=== PATIENT | male | born 1975 | race Caucasian/White ===

== ENCOUNTER 2018-05-25 05:29 | Day surgery (SDC) | payer BC, OTHER ==
[~2018-05-25] VITALS: Ht 177.8 cm; Wt 136.1 kg
--- NOTE | ~2018-05-25 | O ---
[facility] [place] [address] OPERATIVE REPORT Name: MAURO KINNEY Room #: 150-6 [facility]#: [id number] Admission: 05/25/18 Attend Phys: Jacinto Alvarado MD Discharge: Date of : 75 Report #: [id number] THIS REPORT FOR: //name// CC: FAM unknown Keyon Alvarado DATE OF SERVICE: 05/25/[address] Jacinto Alvarado and Dr. Keyon Mckeon. PREOPERATIVE DIAGNOSIS: Incarcerated supraumbilical ventral hernia. POSTOPERATIVE DIAGNOSIS: Incarcerated supraumbilical ventral hernia. PROCEDURE: Repair of an incarcerated supraumbilical ventral hernia. SURGEON: Jacinto Alvarado MD ANESTHESIA: Local IV sedation. DESCRIPTION OF PROCEDURE: The patient was brought to the operating room and placed on operative table in the supine position. Sequential compression devices were in place for DVT prophylaxis. There was no indication for preoperative antibiotics. The patient underwent IV sedation and the abdomen was then prepped and draped in a sterile fashion. Skin and subcutaneous tissues were then infiltrated with 0.5% Marcaine and 1% Xylocaine in a 1:1 mixture. A transverse supraumbilical skin incision was then performed using #15 scalpel blade. Hemostasis obtained using electrocautery. Dissection was carried down through subcutaneous tissue to the hernia sac, which was dissected free, opened. The contents were reduced back into the abdomen. The hernia sac was excised using electrocautery and clamps and 2-0 chromic ties. The hernia sac was sent as specimen to pathology. The fascial defect was then closed very easily and without any tension using interrupted [id number] #1 Prolene sutures. The deep and superficial subcutaneous tissues were then reapproximated using simple interrupted 2-0 chromic sutures and the skin then closed with a running 4-0 subcuticular Vicryl stitch. Wound was then dressed with Dermabond, Telfa, 4 x 4 gauze, sponge and tape. The patient was then taken to the recovery room awake, alert and in good condition. Estimated blood loss was approximately 5 mL and the patient tolerated the procedure well. All sponge, lap and instrument counts correct x 2. By: [id number] Jacinto Alvarado MD /nt
[2018-05-25 10:58] VITALS: BP 143/84
[2018-05-25] MEDS ORDERED: NORCO 5-325 TA1 EACH PO (14:28)
[2018-05-25 14:37] VITALS: BP 143/84
== END 2018-05-25 15:10 | disposition home or self-care (01) ==
LOC: OR 05:29 → TBA 05:29 → OR 11:05
DX: K43.6 Other and unspecified ventral hernia with obstruction, without gangrene (principal); G47.33 Obstructive sleep apnea (adult) (pediatric); F17.220 Nicotine dependence, chewing tobacco, uncomplicated; Z98.890 Other specified postprocedural states; Z88.8 Allergy status to other drugs, medicaments and biological substances
CPT/HCPCS: 50010; 50101; 50386; 50417; 54118; 56524; 56525; 56526; 62110; 62900; 70005